=== PATIENT | female | born 1940 | race Caucasian/White ===

== ENCOUNTER → 2019-11-15 | Outpatient (REF) ==
[2019-11-16 10:08] LABS: RUBELLA IgG QUALITATIVE IMMUNE (IMMUNE)
== END ==
LOC: M LAB 10:12
PROVIDERS: ATTEND Nurse Practitioner Adult Health
DX: Z00.00 Encounter for general adult medical examination without abnormal findings (principal)

== ENCOUNTER → 2024-11-16 | Outpatient (CLI) | payer MEDICARE | LOC: M RAD 10:43 | PROVIDERS: ATTEND Surgery | DX: I82.4Z2 Acute embolism and thrombosis of unspecified deep veins of left distal lower extremity (principal) ==

== ENCOUNTER → 2025-06-29 | Outpatient (CLI) | payer MEDICARE | LOC: M PLAIMG 11:37 | PROVIDERS: ATTEND Internal Medicine | DX: M25.551 Pain in right hip (principal) ==

== ENCOUNTER → 2025-09-12 | Outpatient (CLI) | payer MEDICARE | LOC: M PLAIMG 14:27 | PROVIDERS: ATTEND Physician Assistant Surgical | DX: M51.362 Other intervertebral disc degeneration, lumbar region with discogenic back pain and lower extremity pain (principal); R93.429 Abnormal radiologic findings on diagnostic imaging of unspecified kidney; R93.7 Abnormal findings on diagnostic imaging of other parts of musculoskeletal system; M41.9 Scoliosis, unspecified; M47.26 Other spondylosis with radiculopathy, lumbar region; Z13.820 Encounter for screening for osteoporosis ==

== ENCOUNTER → 2025-09-12 | Outpatient (CLI) | payer MEDICARE | LOC: M WHC 14:26 | PROVIDERS: ATTEND Physician Assistant Surgical | DX: Z13.820 Encounter for screening for osteoporosis (principal); M81.0 Age-related osteoporosis without current pathological fracture ==

== ENCOUNTER → 2025-10-10 | Outpatient (REF) | payer MEDICARE | LOC: M LAB REF 17:01 | PROVIDERS: ATTEND Internal Medicine | DX: N13.30 Unspecified hydronephrosis (principal); B96.20 Unspecified Escherichia coli [E. coli] as the cause of diseases classified elsewhere; N39.0 Urinary tract infection, site not specified ==